=== PATIENT | male | born 1970 | race Two or more races ===

== ENCOUNTER 2017-05-14 23:50 | Emergency (ER) | payer OTHER, MEDICAID ==
[~2017-05-14] VITALS: Ht 172.7 cm; Wt 63.5 kg
[2017-05-15 00:05] VITALS: BP 106/84
== END 2017-05-15 03:45 | disposition left against medical advice (07) ==
LOC: ER 05-15 → EDBD 05-15 → ER 05-15 03:45
DX: E11.65 Type 2 diabetes mellitus with hyperglycemia (principal); Z53.21 Procedure and treatment not carried out due to patient leaving prior to being seen by health care provider